=== PATIENT | male | born 1950 | race Caucasian/White ===

== ENCOUNTER 2018-08-07 10:44 | Emergency (ER) | payer OTHER ==
[2018-08-07] MEDS: HYDROCODONE/APAP (5/325) TAB PO (12:08)
== END 2018-08-07 13:55 | disposition home or self-care (01) ==
LOC: FTE 10:44
DX: S80.812A Abrasion, left lower leg, initial encounter (principal); W22.03XA Walked into furniture, initial encounter; Y92.9 Unspecified place or not applicable
CPT/HCPCS: 73060; 73060-RT; 73590; 99284-25